=== PATIENT | female | born 1960 | race Caucasian/White ===

== ENCOUNTER 2025-07-15 12:24 | Emergency (ER) | payer MEDICARE, SELFPAY ==
[2025-07-15 12:40] VITALS: BP 159/92; PULSE 90; RESP 16; TEMP 37.3; O2SAT 96; BMI 24.2
--- NOTE | 2025-07-15 13:13 | ED.ABDPAIN ---
HPI - Abdominal Pain General Time Seen by Provider: 13:13 Date Seen: 07/15/25 Chief Complaint: Abdominal Pain Stated Complaint: R side abdominal pain Time Seen by Provider: 07/15/25 13:13 Source: patient and RN notes reviewed Mode of arrival: ambulatory Limitations: no limitations History of Present Illness HPI narrative: This 64-year-old female is referred to the ER by Dr. Reis from [facility] for postprandial pain, nocturnal awakening from abdominal pain, steatorrhea, weight loss. Patient is status post cholecystectomy. She had an outside CT done on 06/24/2025 done for routine pulmonary nodule following. Patient does have underlying COPD, her cough is at baseline. The last 4 nights she has been waking up in drenching sweats. Her temperature was elevated in clinic at 99.9 today. No labs were done there as they do not have same day labs, no imaging available with in the [facility] clinic in [place]. She was advised to come here to [facility]. Her symptoms have been present over 3 weeks, weight loss noted and thought to be secondary to postprandial pain. Elevating her legs helps decrease her symptoms. Pain is awakening her from sleep, at times 10/10. It is localized in the right upper quadrant radiating to the back. She is noted oily dark stools. She has been trying ibuprofen without relief. Her CT of her chest is showing calcified mediastinal and bilateral hilar lymph nodes unchanged. No significant axillary mediastinal or hilar lymphadenopathy. She was noted to have a lobulated right lower lobe pulmonary nodule now partially cavitary. Her lungs do have [id number] changes of centrilobular emphysema most prominent in the lung apices not significantly changed. She has scattered calcified granulomas unchanged. There was a 7 mm pulmonary nodule right lower lobe now appearing to be partially cavitary but otherwise unchanged in size. Findings could be related to infectious or inflammatory nodule but cannot completely exclude neoplastic nodule. Recommend comparison with prior outside chest CT dated 04/11/2023 from [facility] in consider pulmonary consultation close follow-up CT. She had of the pulmonary nodules that were unchanged from prior exam. She was also noted on this CT which was done on June 24 to have a dilated common bile duct with recommendations for ultrasound and or MRCP. Her common bile duct was 1.5 cm. This was thought to be related to reservoir effect from previous cholecystectomy but cannot exclude obstructing lesion or stone, the entire common bile duct is not included on this exam. Recommend right upper quadrant ultrasound and or MRCP. Patient notes that she has a follow-up pulmonology appointment scheduled but it is not until September through [facility]. Patient notes no changes in sputum coloration. No increased sputum, cough is at baseline. She has had no recent travel. Related Data Home Medications ?Medication ?Instructions ?Recorded ?Confirmed albuterol sulfate 90 mcg/actuation inhalation 07/15/25 aerosol inhaler (Ventolin HFA) atorvastatin 40 mg tablet 40 mg PO DAILY 07/15/25 07/15/25 budesonide 0.5 mg/2 mL suspension mg 07/15/25 for nebulization hydroxyzine pamoate 50 mg capsule 50 mg PO BID PRN 07/15/25 07/15/25 losartan 50 mg tablet 50 mg PO DAILY 07/15/25 07/15/25 pregabalin 100 mg capsule 100 mg PO BID 07/15/25 07/15/25 sertraline 100 mg tablet mg PO 07/15/25 Previous Rx's ?Medication ?Instructions ?Recorded oxycodone 5 mg tablet 5 mg PO Q6H PRN pain #10 tabs 07/15/25 Allergies Allergy/AdvReac Type Severity Reaction Status Date / Time cortisone Allergy Mild Gastrointestinal Verified 07/15/25 12:45 Upset Review of Systems Status of ROS Reports: 6 or more systems reviewed and unremarkable except as noted in History and below [facility] Medical History (Updated 07/15/25 @ 16:34 by Daphney Armas MD) COPD (chronic obstructive pulmonary disease) ?J44.9 - Chronic obstructive pulmonary disease, unspecified (ICD-10) Surgical History (Updated 07/15/25 @ 13:53 by Daphney Armas MD) Status post laparoscopic cholecystectomy ?Z90.49 - Acquired absence of other specified parts of digestive tract (ICD-10) Exam Const: Vital Signs, click to edit/add: Vital Signs - 24 hr 07/15/25 12:40 Temperature 99.1 F Pulse Rate [Pulse Oximeter] 90 Respiratory Rate 16 Blood Pressure [Ri ght Upper Arm] 159/92 H Pulse Oximetry 96 Oxygen Delivery Me thod Room Air This 64-year-old female is alert, interactive, no apparent distress. She is seen in exam room 6. Pupils equal round reactive, sclera clear, face atraumatic. Speaking in complete sentences, speech is normal, no hoarseness. No coughing while I am in the room with her. Lungs are clear, no wheeze or crackles come no tachypnea, no accessory muscle use. CV regular rate rhythm, no murmur, normal S1-S2. Abdomen is soft, nontender, nondistended, organomegaly, rebound or guarding. She notes the discomfort is in the right upper quadrant radiates into her back but she is not having significant symptoms right now. She has absolutely no lower extremity edema. Gait is normal. Documenting provider has reviewed patient's vital signs: yes Course Course ED Course: As per patient's cavitary pulmonary lesion, we will observe respiratory precautions here but otherwise really do not feel that our facility has more to offer her here. I do think she needs to see pulmonology quicker than September. Unfortunately, there is no simpler quick test to figure this out. Did review with her that mycobacteria including to per kilos this is in the differential. She is having night sweats the last 4 nights, there is weight loss but she is also having GI symptoms. It is her GI symptoms that bring her here today. We unfortunately do not have Gastroenterology. I will check labs on this patient including ANASTASIA and pancreatic lab of lipase. Will get a white count. We will do right upper quadrant ultrasound. If her labs and ultrasound are normal, it is unlikely to be a retained stone. I can also discuss with our surgeon if need be for further recommendations. We do not have ERCP here or GI. Reevaluation(s) Time of Reevaluation #1: 14:13 Reevaluation #1: Javier the mathematician did show me pictures, the common bile duct is definitely dilated, and in the head of the pancreas but there is not good blood flow. Did subsequently call radiologist Dr. Garay in reviewed case. He thinks we should proceed with CT imaging of her abdomen pelvis with IV contrast. Unfortunately, I do not have any labs back yet at this time. He states if there is a pancreatic mass, we should be able to see it on the CT and further evaluation can be undertaken from there if needed. Patient will be updated on this. Time of Reevaluation #2: 16:25 Reevaluation #2: Have reviewed dab CT report with her, provided her a copy. We will give her some oxycodone for pain management, she will need to work with her primary to get her into further evaluation. We did discuss the possibility of jaundice and if she is becoming jaundice, needs to go to an institution with her there is GI like [facility]. We do not have that here. Her labs are not showing any evidence of hyperbilirubinemia at this time. She is at risk for jaundice. I do wonder for night sweats could be coming from underlying cancer process. She also has this cavitary lesion in her lung which is going to need further evaluation especially if she is needing to undergo treatment and management for pancreatic cancer. She understands that they will need to get tissue biopsy, this has not been proven to be cancer but is certainly concerning by its presentation on CT. Consultations Consultation #1: Have spoken with her primary Dr. Reis. We reviewed her CT findings, her normal labs. If she is having further issues, would recommend that she proceed to an ED with a possibility for GI consultation. He is expecting my report, he will get a referral faxed off tomorrow for her. I will have her CT scan pushed to [facility] as well. Time: 16:45 Vital Signs Vital signs: Initial Vital Signs Temperature 99.1 F 07/15/25 12:40 Temperature Source Temporal Artery Scan 07/15/25 12:40 Pulse Rate 90 07/15/25 12:40 Respiratory Rate 16 07/15/25 12:40 Blood Pressure 159/92 H 07/15/25 12:40 Blood Pressure Mean 114 H 07/15/25 12:40 Pulse Oximetry 96 07/15/25 12:40 Oxygen Delivery Method Room Air 07/15/25 12:40 Vital Signs Temperature 99.1 F 07/15/25 12:40 Pulse Rate 90 07/15/25 12:40 Respiratory Rate 16 07/15/25 12:40 Blood Pressure 159/92 H 07/15/25 12:40 Pulse Oximetry 96 07/15/25 12:40 Oxygen Delivery Method Room Air 07/15/25 12:40 Temperature 99.1 F 07/15/25 12:40 Pulse Rate 90 07/15/25 12:40 Respiratory Rate 16 07/15/25 12:40 Blood Pressure 159/92 H 07/15/25 12:40 Pulse Oximetry 96 07/15/25 12:40 Oxygen Delivery Method Room Air 07/15/25 12:40 MDM - Abdominal Pain Lab Data Attestation: I reviewed the patient's lab results. Labs: Lab Results 07/15/25 Range/Units 14:27 WBC 6.77 (4.50-11.00) K/uL RBC 4.46 (4.00-5.20) m/uL Hgb 13.0 (12.0-16.0) gm/dL Hct 39.8 (33.0-51.0) % MCV 89 (80-100) fL MCH 29 (26-34) pg MCHC 33 (32-36) gm/dL RDW Coeff of Lei 14.4 (11.5-15.5) % Plt Count 284 (140-440) K/uL Neut % (Auto) 63.5 (42.0-72.0) % Lymph % (Auto) 28.8 (20-44) % [place] % (Auto) 6.6 (0.0-11.0) % Eos % (Auto) 0.6 (0.0-7.0) % Baso % (Auto) 0.4 (0.0-3.0) % Neut # (Auto) 4.29 (1.7-7.0) K/uL Lymph # (Auto) 1.95 (0.90-2.90) K/uL [place] # (Auto) 0.40 (0.00-0.90) K/UL Eos # (Auto) 0.04 (0.00-0.50) K/uL Baso # (Auto) 0.03 (0.00-0.30) K/uL Abs Immat Gran (auto) 0.01 (0.00-0.30) K/uL Imm/Tot Granulo (auto) 0.1 % Sodium 136 (135-149) mmol/L Potassium 4.0 (3.6-5.1) mmol/L Chloride 100 (96-114) mmol/L Carbon Dioxide 28 (20-32) mmol/L Anion Gap 8 (7-15) mEq/L BUN 9 (7-30) mg/dL Creatinine 0.7 (0.5-1.5) mg/dL Estimated Creat Clear 42.32 Estimated GFR 96 ml/min Glucose 101 (60-115) mg/dL Lactate 0.8 (0.5-1.9) mmol/L Calcium 9.0 (8.4-10.6) mg/dL Total Bilirubin 0.4 (0.1-1.5) mg/dL Direct Bilirubin 0.2 (0.0-0.5) mg/dL AST 25 (12-35) U/L ALT 16 (4-35) U/L Alkaline Phosphatase 104 (40-150) U/L C-Reactive Protein 1.4 H (0.5-1.0) mg/dL Total Protein 7.2 (6.0-8.3) g/dL Albumin 4.1 (3.3-5.0) g/dL Lipase 299 (23-300) U/L Procalcitonin 0.05 (<0.50) ng/mL Imaging Data US - abdomen: Attestation: I have reviewed the pertinent imaging results. Radiologist's impression: Patient: KATHY HAYWOOD Facility:?[facility] Patient ID:?[id number] Site Patient ID:?[id number]. Site :?[id number] Study:?US-Abdomen RUQ-07/15/2025 2:20:41 PM Ordering Physician:David Shelley Final Report: INDICATION: Right upper quadrant pain COMPARISON: none TECHNIQUE: Real time leblanc scale imaging and color Doppler analysis was performed of the right upper quadrant. FINDINGS: Intrahepatic and extrahepatic biliary duct dilation noted. No intrahepatic mass. There is a normal appearance of the hepatic IVC and proximal abdominal aorta. There is no evidence of ascites. The gallbladder is absent. The common bile duct measures up to 1.7 cm with abrupt termination related to a solid hypoechoic pancreatic head mass measuring 3.4 x 2.8 x 3.8 cm. There is no evidence of a stone or hydronephrosis within the right kidney. The right kidney measures 10.1 cm in length. IMPRESSION: Solid pancreatic mass measures 3.8 cm with biliary duct obstruction resulting in intrahepatic and extrahepatic biliary duct dilation. CT recommended. Discussed with Dr. Vallejo 2:20 p.m. 07/15/2025. Dictated by Trung Garay MD @ 07/15/2025 2:26:44 PM (Electronic Signature) CT scan - abdomen: Attestation: I have reviewed the pertinent imaging results. My impression: Did visualize patient's CT, can see pancreatic mass, will obviously await Radiology over-read. Radiologist's impression: Patient: KATHY HAYWOOD Facility:?[facility] Patient ID:?[id number] Site Patient ID:?[id number]. Site :?[id number] Study:?CT-Abdomen/Pelvis W/ ISOVUE 370-07/15/2025 3:35:37 PM Ordering Physician:?Pawel Shelley Final Report: INDICATION: Dilated common bile duct, evaluate pancreatic abnormality TECHNIQUE: CT abdomen and pelvis acquired with 63 cc Isovue 370 IV contrast. COMPARISON: Same-day right upper quadrant ultrasound. FINDINGS: Lower chest: Few pulmonary nodules are present in the imaged lung bases, including a centrally hypoattenuating 5 millimeter nodule in the right lower lobe (series 3, image 18) and a 3 millimeter subpleural nodule in the right lower lobe (series 3, image 15). Calcified granulomas. Liver: There is an ill-defined region of hyperattenuation in the superior right hepatic lobe measuring approximately 2.4 x 1.6 centimeters (series 6, image 13). There is diffuse intrahepatic biliary ductal dilation. Gallbladder and bile ducts: Status post cholecystectomy. Intrahepatic biliary dilation is present. Prominent dilation of the common bile duct measuring approximately 17 millimeters in diameter (series 4, image 47). Pancreas: There is a hypoattenuating mass within the pancreatic head measuring approximately 3.3 x 2.4 x 2.8 Centimeters (series 2, image 52 and series 4, image 41). The main pancreatic duct is dilated up to 7 millimeters. Spleen: Unremarkable. Normal in size. No masses. Adrenal glands: Heterogeneous left adrenal nodule measures approximately 1.5 by 1.4 centimeters (series 2, image 38). The right adrenal gland appears unremarkable. Kidneys: Symmetric parenchymal enhancement. Large left upper pole exophytic cortical cyst. Subcentimeter right renal cortical hypodensity too small to characterize. GI tract: No evidence of bowel obstruction or inflammation. Normal appendix. Vasculature: Abdominal aorta is normal in caliber. Mesenteric arteries are patent. Moderate atherosclerotic disease. The pancreatic head mass abuts the superior mesenteric artery (series 2, image 51). Lymph nodes: No lymphadenopathy. Peritoneum/Abdominal Wall: Tiny fat containing umbilical hernia. Hyperdense surgical material along the lower anterior abdominal wall may reflect sequelae of prior ventral hernia repair. No free air or significant free fluid. Pelvis: Status post hysterectomy. Bones: No acute or suspicious osseous abnormality. IMPRESSION: 1. Pancreatic head mass measuring up to 3.3 centimeters in size with resultant intrahepatic and extrahepatic biliary ductal dilation and dilation of the main pancreatic duct highly suspicious for primary pancreatic neoplasm, particularly pancreatic adenocarcinoma. The pancreatic mass abuts the superior mesenteric artery. 2. Indeterminate ill-defined hyperattenuating lesion within the right hepatic lobe, which could be further characterized with multiphase abdominal MRI. 3. Indeterminate left adrenal nodule measuring up to 1.5 centimeters in size, which also may be further characterized with MRI. 4. Few indeterminate pulmonary nodules in the lung bases measuring up to 5 millimeters in size. Consider nonurgent full CT imaging of the chest and continued attention on follow-up per clinical protocol. Please note that all CT scans at this facility use dose modulation, iterative reconstruction, and/or weight-based dosing when appropriate to reduce radiation dose to as low as reasonably achievable. Dictated by Sharron Stevenson MD @ 07/15/2025 3:54:25 PM (Electronic Signature) Discharge Plan Discharge Clinical Impression: Mass of head of pancreas, Abdominal pain, acute, right upper quadrant Patient Disposition: Home, Self-Care Condition: Stable Instructions: Acute Abdominal Pain (ED) Additional Instructions: If you develop fevers, developed jaundice, have worsening abdominal pain that is not controlled by outlined management, need to proceed for further evaluation. I would recommend going to an institution that has GI capacity. [facility], [facility] are all possibilities. I have written for some oxycodone for severe pain, can try Tylenol 1000 mg 3 times a day for baseline pain management and use the oxycodone for more severe pain. May need to use senna and or MiraLax to prevent constipation from oxycodone use. Your going to need to follow up in clinic [facility], hopefully within the next 1-3 days so that you can get further pain management if needed and get appropriate referrals started. Activity Level: Activity as Tolerated Prescriptions: New oxycodone 5 mg tablet 5 mg PO Q6H PRN (Reason: pain) Qty: 10 0RF No Action losartan 50 mg tablet 50 mg PO DAILY atorvastatin 40 mg tablet 40 mg PO DAILY sertraline 100 mg tablet PO hydroxyzine pamoate 50 mg capsule 50 mg PO BID PRN budesonide 0.5 mg/2 mL suspension for nebulization Patient Comments: [NO ORIGINAL SIG] albuterol sulfate [Ventolin HFA] 90 mcg/actuation HFA aerosol inhaler inhalation pregabalin 100 mg capsule 100 mg PO BID Follow Up/Referrals: Provider,Not a Local [Primary Care Provider, Family Practice] Stand Alone Forms: [employer] Info Instructions
--- NOTE | 2025-07-15 13:28 | CRLHL7_ITS ---
For Patients: As a result of the Century Cures Act, medical imaging exams and procedure reports are released immediately into your electronic medical record. You may view this report before your referring provider. If you have questions, please contact your health care provider. INDICATION: Right upper quadrant pain COMPARISON: none TECHNIQUE: Real time leblanc scale imaging and color Doppler analysis was performed of the right upper quadrant. FINDINGS: Intrahepatic and extrahepatic biliary duct dilation noted. No intrahepatic mass. There is a normal appearance of the hepatic IVC and proximal abdominal aorta. There is no evidence of ascites. The gallbladder is absent. The common bile duct measures up to 1.7 cm with abrupt termination related to a solid hypoechoic pancreatic head mass measuring 3.4 x 2.8 x 3.8 cm. There is no evidence of a stone or hydronephrosis within the right kidney. The right kidney measures 10.1 cm in length. IMPRESSION: Solid pancreatic mass measures 3.8 cm with biliary duct obstruction resulting in intrahepatic and extrahepatic biliary duct dilation. CT recommended. Discussed with Dr. Vallejo 2:20 p.m. 07/15/2025. Dictated by Trung Garay MD @ 07/15/2025 2:26:44 PM (Electronically Signed)
--- NOTE | 2025-07-15 14:12 | CRLHL7_ITS ---
For Patients: As a result of the 21st Century Cures Act, medical imaging exams and procedure reports are released immediately into your electronic medical record. You may view this report before your referring provider. If you have questions, please contact your health care provider. INDICATION: Dilated common bile duct, evaluate pancreatic abnormality TECHNIQUE: CT abdomen and pelvis acquired with 63 cc Isovue 370 IV contrast. COMPARISON: Same-day right upper quadrant ultrasound. FINDINGS: Lower chest: Few pulmonary nodules are present in the imaged lung bases, including a centrally hypoattenuating 5 millimeter nodule in the right lower lobe (series 3, image 18) and a 3 millimeter subpleural nodule in the right lower lobe (series 3, image 15). Calcified granulomas. Liver: There is an ill-defined region of hyperattenuation in the superior right hepatic lobe measuring approximately 2.4 x 1.6 centimeters (series 6, image 13). There is diffuse intrahepatic biliary ductal dilation. Gallbladder and bile ducts: Status post cholecystectomy. Intrahepatic biliary dilation is present. Prominent dilation of the common bile duct measuring approximately 17 millimeters in diameter (series 4, image 47). Pancreas: There is a hypoattenuating mass within the pancreatic head measuring approximately 3.3 x 2.4 x 2.8 Centimeters (series 2, image 52 and series 4, image 41). The main pancreatic duct is dilated up to 7 millimeters. Spleen: Unremarkable. Normal in size. No masses. Adrenal glands: Heterogeneous left adrenal nodule measures approximately 1.5 by 1.4 centimeters (series 2, image 38). The right adrenal gland appears unremarkable. Kidneys: Symmetric parenchymal enhancement. Large left upper pole exophytic cortical cyst. Subcentimeter right renal cortical hypodensity too small to characterize. GI tract: No evidence of bowel obstruction or inflammation. Normal appendix. Vasculature: Abdominal aorta is normal in caliber. Mesenteric arteries are patent. Moderate atherosclerotic disease. The pancreatic head mass abuts the superior mesenteric artery (series 2, image 51). Lymph nodes: No lymphadenopathy. Peritoneum/Abdominal Wall: Tiny fat containing umbilical hernia. Hyperdense surgical material along the lower anterior abdominal wall may reflect sequelae of prior ventral hernia repair. No free air or significant free fluid. Pelvis: Status post hysterectomy. Bones: No acute or suspicious osseous abnormality. IMPRESSION: 1. Pancreatic head mass measuring up to 3.3 centimeters in size with resultant intrahepatic and extrahepatic biliary ductal dilation and dilation of the main pancreatic duct highly suspicious for primary pancreatic neoplasm, particularly pancreatic adenocarcinoma. The pancreatic mass abuts the superior mesenteric artery. 2. Indeterminate ill-defined hyperattenuating lesion within the right hepatic lobe, which could be further characterized with multiphase abdominal MRI. 3. Indeterminate left adrenal nodule measuring up to 1.5 centimeters in size, which also may be further characterized with MRI. 4. Few indeterminate pulmonary nodules in the lung bases measuring up to 5 millimeters in size. Consider nonurgent full CT imaging of the chest and continued attention on follow-up per clinical protocol. Please note that all CT scans at this facility use dose modulation, iterative reconstruction, and/or weight-based dosing when appropriate to reduce radiation dose to as low as reasonably achievable. Dictated by Sharron Stevenson MD @ 07/15/2025 3:54:25 PM (Electronically Signed)
[2025-07-15 14:33] LABS: Lactate* 0.8 mmol/L (0.5-1.9)
[2025-07-15 14:35] LABS: Hematocrit* 39.8 % (33.0-51.0); Hemoglobin* 13.0 gm/dL (12.0-16.0); Immature Granulocytes Abs Auto 0.01 K/uL (0.00-0.30); Immature Granulocytes Pct Auto 0.1 %; Lymphocytes Absolute Auto 1.95 K/uL (0.90-2.90); Mean Corpuscular HGB Conc 33 gm/dL (32-36); Mean Corpuscular Hemoglobin 29 pg (26-34); Mean Corpuscular Volume 89 fL (80-100); RDW Coefficient of Variation % 14.4 % (11.5-15.5); Red Blood Count* 4.46 m/uL (4.00-5.20); White Blood Count* 6.77 K/uL (4.50-11.00)
[2025-07-15 14:47] LABS: Slide Review Reflex No
[2025-07-15 14:57] LABS: Albumin* 4.1 g/dL (3.3-5.0); Chloride* 100 mmol/L (96-114); Potassium* 4.0 mmol/L (3.6-5.1); Sodium* 136 mmol/L (135-149)
[2025-07-15 14:59] LABS: Blood Urea Nitrogen* 9 mg/dL (7-30); Creatinine* 0.7 mg/dL (0.5-1.5); Est. Creatinine Clearance* 42.32; Estimated Glomerular Filt Rate 96 ml/min
[2025-07-15 15:00] LABS: Alanine Aminotransferase* 16 U/L (4-35); Alkaline Phosphatase* 104 U/L (40-150); Anion Gap 8 mEq/L (7-15); Aspartate Amino Transferase* 25 U/L (12-35); Bilirubin Direct* 0.2 mg/dL (0.0-0.5); Bilirubin Total* 0.4 mg/dL (0.1-1.5); Calcium* 9.0 mg/dL (8.4-10.6); Carbon Dioxide* 28 mmol/L (20-32); Glucose* 101 mg/dL (60-115); Total Protein* 7.2 g/dL (6.0-8.3)
[2025-07-15 15:17] LABS: Procalcitonin* 0.05 ng/mL (<0.50)
== END 2025-07-15 17:00 | disposition home or self-care (01) ==
PROVIDERS: Emergency Provider Family Medicine
DX: R10.11 Right upper quadrant pain (principal); K86.89 Other specified diseases of pancreas
CPT/HCPCS: 36415; 74177; 76705; 80053; 82248; 83605; 83690; 84145; 85025; 86140; 99284; Q9967